=== PATIENT | male | born 1965 | race Caucasian/White ===

== ENCOUNTER 2018-02-19 11:10 | Emergency (ER) | payer MEDICAID ==
[2018-02-19] MEDS ORDERED: ceFAZolin 1 GM Vial IVPUSH SCH (12:30)
--- NOTE | 2018-02-19 13:19 | EDM.PDOC ---
ED HPI GENERAL MEDICAL PROBLEM - General Chief Complaint: Skin Complaint Stated Complaint: INFECTION IN YOUR CHEEK Time Seen by Provider: 02/19/18 13:00 Source of Information: Reports: Patient History Limitations: Reports: No Limitations - History of Present Illness INITIAL COMMENTS - FREE TEXT/NARRATIVE: 43-year-old male presents to the emergency room with left side facial swelling and edema. He was seen in [facility] emergency room on Tuesday and was given amoxicillin. He was unable to get this filled until yesterday evening. Upon waking up this morning he had severe swelling on the left side of his face and left eye. He denies significant pain. He denies any fever or chills. No shortness of breath or respiratory complaints. He denies any visual changes. He denies any swallowing difficulties. Is not having any difficulties with his speech. Onset: Gradual Onset Date: 02/17/18 Duration: Day(s):, Getting Worse Location: Reports: Face Quality: Reports: Pressure Severity: Moderate Improves with: Reports: None Worsens with: Reports: None Associated Symptoms: Denies: Chest Pain, Fever/Chills, Nausea/Vomiting, Shortness of Breath - Related Data Allergies Allergy/AdvReac Type Severity Reaction Status Date / Time No Known Drug Allergies Allergy Cannot Verified 02/19/18 11:25 Remember Home Meds: Home Meds . [No Known Home Meds] 02/19/18 [History] Past Medical History HEENT History: Reports: Impaired Vision - Infectious Disease History Infectious Disease History: Reports: Chicken Pox, Hepatitis C - Past Surgical History HEENT Surgical History: Reports: Tonsillectomy Social & Family History - Tobacco Use Smoking Status *Q: Current Every Day Smoker Years of Tobacco use: 40 Packs/Tins Daily: 1 - Caffeine Use Caffeine Use: Reports: Coffee, Energy Drinks, Soda Other Caffeine Use: regular - Recreational Drug Use Recreational Drug Use: Yes Drug Use in Last 12 Months: Yes Recreational Drug Type: Reports: Marijuana/Hashish Recreational Drug Use Frequency: Weekly ED ROS GENERAL - Review of Systems Review Of Systems: ROS reveals no pertinent complaints other than HPI. ED EXAM, SKIN/RASH Exam: See Below Exam Limited By: No Limitations General Appearance: Alert, WD/WN, No Apparent Distress Eye Exam: Left Eye: Periorbital Changes (swelling), Bilateral Eye: EOMI Ears: Hearing Grossly Normal Nose: Normal Inspection, No Blood Throat/Mouth: Normal Gums, Normal Voice, No Airway Compromise, Other ( Pronounced swelling over the left face slight warmth with firmness over the left maxillary. Swelling extends over the left periorbital and eye.) Head: Atraumatic, Normocephalic, Facial Swelling, Facial Tenderness. No: Sinus Tenderness Neck: Normal Inspection, Supple, Non-Tender, Full Range of Motion, Lymphadenopathy (L). No: Lymphadenopathy (R), Tender Lateral, Tender Midline Respiratory/Chest: No Respiratory Distress, Lungs Clear Cardiovascular: Regular Rate, Rhythm Extremities: Normal Inspection, Normal Range of Motion Neurological: Alert, Oriented, No Motor/Sensory Deficits Psychiatric: Normal Affect, Normal Mood Skin: Warm, Wound/Incision (Healed incision over the left cheek), Other ( Cellulitis infection left face) Location, Skin: Face Characteristics: Erythematous Associated features: Warmth, Tenderness, Swelling, Inflammation Lymphatic: Adenopathy Course - Vital Signs Last Recorded V/S: Last Vital Signs Temp 98.9 F 02/19/18 11:26 Pulse 91 02/19/18 11:26 Resp 18 02/19/18 11:26 BP 154/85 H 02/19/18 11:26 Pulse Ox 96 02/19/18 11:26 - Orders/Labs/Meds Orders: Active Orders 24 hr Category Date Time Status ceFAZolin [Ancef] Med 02/19/18 12:30 Active 2 gm IVPUSH ONETIME Medication Orders Cefazolin Sodium (Ancef) 2 gm IVPUSH ONETIME MAYRA Last Admin: 02/19/18 12:29 Dose: 2 gm Labs: Laboratory Tests 02/19/18 Range/Units 11:55 WBC 17.5 H (5.0-10.0) 10^3/uL RBC 4.73 (4.50-6.00) 10^6/uL Hgb 15.6 (13.0-17.0) g/dL Hct 45.8 (40.0-52.0) % MCV 96.9 H (82.0-92.0) fL MCH 32.9 H (27.0-31.0) pg MCHC 34.0 (32.0-36.0) g/dL RDW 12.3 (11.5-14.5) % Plt Count 283 (150-300) 10^3/uL MPV 6.8 L (7.4-10.4) fL Neut % (Auto) 85.5 H (50.0-70.0) % Lymph % (Auto) 5.9 L (20.0-40.0) % [place] % (Auto) 8.0 (2.0-8.0) % Eos % (Auto) 0.6 L (1.0-3.0) % Baso % (Auto) 0.0 (0.0-1.0) % Neut # (Auto) 15.0 H (2.5-7.0) 10^3/uL Lymph # (Auto) 1.0 (1.0-4.0) 10^3/uL [place] # (Auto) 1.4 H (0.1-0.8) 10^3/uL Eos # (Auto) 0.1 (0.1-0.3) 10^3/uL Baso # (Auto) 0.0 (0.0-0.1) 10^3/uL Meds: Medications Generic Name Dose Route Start Last Admin Trade Name Frekel PRN Reason Stop Dose Admin Cefazolin Sodium 2 gm 02/19/18 12:30 02/19/18 12:29 Ancef IVPUSH 2 gm ONETIME MAYRA Administration - Re-Assessments/Exams Free Text/Narrative Re-Assessment/Exam: 02/19/18 13:28 Patient was given 2 g of IV Ancef. He had immediate improvement of the swelling over the left periorbital area. Departure - Departure Time of Disposition: 13:28 Disposition: Home, Self-Care 01 Condition: Fair Clinical Impression: Cellulitis and abscess of face - Discharge Information Instructions: Preseptal Cellulitis, Adult, Cellulitis, Adult, [id number] Referrals: Ирина Thompson [employer]STRUCTION [employer]INEER [Primary Care Provider] - Forms: ED Department Discharge Additional Instructions: 1. Return tonight for 2 g of Rocephin IV. Will want over the next 72 hours. 2. Patient does not have a primary care provider but his girlfriend sees Ирина Thompson ENVIRONMENTAL CONSTRUCTION ENGINEER, make an appointment on Tuesday to get into see Ирина this week make sure that the cellulitis is improving. - My Orders Last 24 Hours: My Active Orders 02/19/18 12:30 ceFAZolin [Ancef] 2 gm IVPUSH ONETIME - Assessment/Plan Last 24 Hours: My Active Orders 02/19/18 12:30 ceFAZolin [Ancef] 2 gm IVPUSH ONETIME Assessment:: Cellulitis of the left face Plan: 1. Return tonight for 2 g of Rocephin IV. Will want over the next 72 hours. 2. Patient does not have a primary care provider but his girlfriend sees Ирина Thompson ENVIRONMENTAL CONSTRUCTION ENGINEER, make an appointment on Tuesday to get into see Ирина this week make sure that the cellulitis is improving.
== END 2018-02-19 13:15 | disposition home or self-care (01) ==
LOC: KA.ED 11:10
DX: L03.211 Cellulitis of face (principal)
CPT/HCPCS: 85025; 96374; 99283; J0690